=== PATIENT | male | born 1990 | race Caucasian/White ===

== ENCOUNTER 2023-04-11 08:15 | Day surgery (SDC) | payer OTHER ==
[2023-04-11] MEDS ORDERED: Sodium Chloride 0.9% 1,000 ML IV STA (08:39)
[2023-04-11] MEDS ORDERED: Sodium Chloride 0.9% 10 ML Syringe FLUSH PRN (08:39)
[2023-04-11] MEDS ORDERED: Ondansetron 4 MG/2 ML SDV IVPUSH ONE (08:41)
[2023-04-11] MEDS ORDERED: Iopamidol 612 MG/ML 100 ML Bottle IVPUSH ONE (09:09)
[2023-04-11] MEDS ORDERED: Sodium Chloride 0.9% 10 ML Syringe FLUSH ONE (09:09)
[2023-04-11 09:12] LABS: BASOPHILS PERCENT AUTO 0.2 % (0.0-1.0); EOSINOPHILS PERCENT AUTO 0.1 % (0.0-6.0); HEMATOCRIT 46.7 % (42.0-52.0); HEMOGLOBIN 16.2 gm/dl (14.0-18.0); IMMATURE GRAN ABSOLUTE AUTO 0.04 K/mm3 (0.00-0.05); IMMATURE GRAN PERCENT AUTO 0.3 % (0.0-0.4); LYMPHOCYTES ABSOLUTE AUTO 1.7 K/mm3 (1.0-4.8); LYMPHOCYTES PERCENT AUTO 11.4 % (24.0-44.0); MEAN CORPUSCULAR HEMOGLOBIN 29.8 pg (28.0-32.0); MEAN CORPUSCULAR HGB CONC 34.7 g/dl (32.0-36.0); MEAN CORPUSCULAR VOLUME 85.8 fl (83.0-99.0); MEAN PLATELET VOLUME 11.2 fl (9.4-12.4); MONOCYTES ABSOLUTE AUTO 1.6 K/mm3 (0.0-0.8); MONOCYTES PERCENT AUTO 10.6 % (0.0-8.0); NEUTROPHILS ABSOLUTE AUTO 11.5 K/mm3 (1.8-7.7); NEUTROPHILS PERCENT AUTO 77.4 % (41.0-71.0); PLATELET COUNT,PLT 293 K/mm3 (150-400); RED BLOOD CELL COUNT 5.44 M/mm3 (4.52-5.90); WHITE BLOOD CELL COUNT,WBC 14.84 K/mm3 (3.9-11.3)
[2023-04-11 09:12] LABS: APPEARANCE,URINE CLEAR (Clear); BILIRUBIN,URINE 1+ (Negative); COLOR,URINE YELLOW (Yellow); GLUCOSE,URINE NEGATIVE (Negative); KETONES,URINE 4+ (Negative); LEUKOCYTE ESTERASE,URINE NEGATIVE (Negative); NITRITE,URINE NEGATIVE (Negative); OCCULT BLOOD,URINE 2+ (Negative); PH,URINE 6.5 (5.0-8.0); PROTEIN,URINE 2+ (Negative); UROBILINOGEN,URINE 0.2 (0.2-1.0)
[2023-04-11 09:22] LABS: BACTERIA,URINE FEW /hpf (FEW); EPITHELIAL CELLS,URINE 0-5 /hpf (0-5); HYALINE CASTS,URINE 0-5 /lpf (0-5); MUCUS,URINE MANY /hpf (FEW)
[2023-04-11 09:24] LABS: CORONAVIRUS COVID-19 NAA NEGATIVE (NEGATIVE); INFLUENZA A NAA NEGATIVE (NEGATIVE); RESPIRATORY SYNCYTIAL VIR NAA NEGATIVE (NEGATIVE)
[2023-04-11 09:30] LABS: A/G RATIO 0.9 (1-2); ANION GAP 15.4 (5-15); BILIRUBIN TOTAL 1.6 mg/dL (0.2-1.0); CALCIUM 9.5 mg/dL (8.5-10.1); CREATININE 1.1 mg/dL (0.7-1.3); EST CRCL DRUG DOSING (CG) 91.55 mL/min; POTASSIUM,K 3.4 mEq/L (3.5-5.1); PROTEIN TOTAL,TP 8.4 g/dl (6.4-8.2)
[2023-04-11 09:31] LABS: SLIDE REVIEW ABNORMAL SMEAR
[2023-04-11] MEDS ORDERED: cefTRIAXone 2 GM in Sodium Chloride 0.9% 100 ML IV ONE (11:42)
[2023-04-11] MEDS ORDERED: HYDROmorphone 0.5 MG/0.5 ML Syringe IVPUSH ONE (12:37)
[2023-04-11] MEDS ORDERED: Lactated Ringers 1,000 ML IV SCH (12:45)
[2023-04-11] MEDS ORDERED: EPINEPHrine 1 MG/ML SDV ONE (13:57)
[2023-04-11] MEDS ORDERED: Lidocaine 1% 10 ML MDV ONE (13:57)
[2023-04-11] MEDS ORDERED: Bupivacaine 0.5% 30 ML SDV ONE (13:58)
[2023-04-11] MEDS ORDERED: Lidocaine 1% 5 ML VIAL ONE (13:59)
[2023-04-11] MEDS ORDERED: Propofol 200 MG/20 ML SDV ONE (13:59)
[2023-04-11] MEDS ORDERED: Rocuronium 50 MG/5 ML Vial ONE ×2 (13:59→17:54)
[2023-04-11] MEDS ORDERED: fentaNYL 250 MCG/5 ML SDV ONE (13:59)
[2023-04-11] MEDS ORDERED: Ondansetron 4 MG/2 ML SDV ONE (13:59)
[2023-04-11] MEDS ORDERED: Midazolam 1 MG/ML 2 ML SDV ONE (13:59)
[2023-04-11] MEDS ORDERED: Dexamethasone 4 MG/ML 5 ML MDV ONE (14:00)
[2023-04-11] MEDS ORDERED: ceFAZolin 2 GM Vial ONE (16:00)
[2023-04-11] MEDS ORDERED: fentaNYL 100 MCG/2 ML SDV IVPUSH PRN (16:09)
[2023-04-11] MEDS ORDERED: HYDROmorphone 0.5 MG/0.5 ML Syringe IVPUSH PRN (16:09)
[2023-04-11] MEDS ORDERED: Ondansetron 4 MG/2 ML SDV IVPUSH PRN (16:09)
[2023-04-11] MEDS ORDERED: HYDROmorphone 0.5 MG/0.5 ML Syringe ONE (16:25)
[2023-04-11] MEDS ORDERED: Ketorolac 30 MG/ML SDV ONE (16:32)
[2023-04-11] MEDS ORDERED: Labetalol 100 MG/20 ML MDV ONE (16:36)
[2023-04-11] MEDS ORDERED: Lactated Ringers 1,000 ML ONE (16:51)
[2023-04-11] MEDS ORDERED: fentaNYL 100 MCG/2 ML SDV ONE (16:52)
[2023-04-11] MEDS ORDERED: Metoclopramide 10 MG/2 ML SDV ONE (17:27)
[2023-04-11] MEDS ORDERED: Neostigmine Methylsulfate 10 MG/10 ML MDV ONE (18:02)
[2023-04-11] MEDS ORDERED: Acetaminophen/oxyCODONE 325-5 MG Tab PO ONE (19:48)
== END 2023-04-11 20:17 | disposition home or self-care (01) ==
LOC: JD.ED 08:15 → JD.SDS 13:08
PROVIDERS: ATTEND Surgery
DX: K80.10 Calculus of gallbladder with chronic cholecystitis without obstruction (principal); K82.8 Other specified diseases of gallbladder; J45.909 Unspecified asthma, uncomplicated; Z20.822 Contact with and (suspected) exposure to COVID-19; Z79.899 Other long term (current) drug therapy
CPT/HCPCS: 00790; 0241U; 36415; 74177; 74177-26; 76705; 76705-26; 80053; 81001; 83690; 85025; 99140; 99285; A9270-GY; J0171; J0690; J0696; J1100; J1170; J1885; J2250; J2405; J2704; J2710; J2765; J3010; J3490; J7030; J7120; Q9967